=== PATIENT | male | born 1990 | race Caucasian/White ===

== ENCOUNTER 2020-08-15 17:20 | Emergency (ER) | payer OTHER, SELFPAY ==
--- NOTE | ~2020-08-15 | XR_ITS ---
EXAMINATION: XR elbow LT min 3V DATE: 08/15/2020 18:11 INDICATION: Left elbow pain TECHNIQUE: Anteroposterior, two oblique and lateral views of the left elbow were obtained. COMPARISON: None. FINDINGS: Alignment is normal. No fracture or joint effusion. Joint spaces are normal. A posterior so ft tissue laceration is seen near the olecranon. IMPRESSION: 1. Posterior soft tissue laceration without underlying osseous abnormality. Reviewed, dictated and finalized at location A. [employer]
[2020-08-15 17:28] VITALS: BP 151/80; PULSE 70; RESP 18; TEMP 35.8; O2SAT 99
[2020-08-15 19:36] VITALS: BP 128/83; PULSE 63; RESP 18; TEMP 36.3; O2SAT 100
--- NOTE | 2020-08-15 19:48 | ED.GENADULT ---
HPI - General Adult General Chief complaint: Extremity Injury, Upper <Madalyn Villasenor PA-C - Last Filed: 08/15/20 19:58> Stated complaint: ELbow lac at work <GABRIELA Mathias Last Filed: 08/15/20 19:58> Time Seen by Provider: 08/15/20 17:49 <Madalyn Villasenor PA-C - Last Filed: 08/15/20 19:58> Source: patient <GABRIELA Mathias Last Filed: 08/15/20 19:58> Mode of arrival: ambulatory <GABRIELA Mathias Last Filed: 08/15/20 19:58> Limitations: no limitations <GABRIELA Mathias Last Filed: 08/15/20 19:58> History of Present Illness HPI narrative: Patient presents with chief complaint of laceration to the left elbow with a just 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 Patient reports laceration was bleeding so his coworker told him that he needs to go to the ER for stitches. Patient states that he is up-to-date on Tdap. Patient denies head injury or any other areas of discomfort or impact. <GABRIELA Mathias Last Filed: 08/15/20 19:58> Related Data Home medications: Home Medications Medication Instructions Recorded Confirmed No Home Medications 07/18/19 08/15/20 <GABRIELA Mathias Last Filed: 08/15/20 19:58> Allergies/adverse reactions: Allergies Allergy/AdvReac Type Severity Reaction Status Date / Time No Known Allergies Allergy Verified 08/15/20 17:48 <GABRIELA Mathias Last Filed: 08/15/20 19:58> Review of Systems Review of Systems: Narrative: CONSTITUTIONAL: Denies fever, chills, or sweats. EYES: Denies visual changes, redness, or discharge. ENT: Denies rhinorrhea, congestion, sore throat, or otalgia. CARDIOVASCULAR: Denies chest pain, palpitations, or edema. RESPIRATORY: Denies cough or dyspnea. GASTROINTESTINAL: Denies abdominal pain, nausea, vomiting, or diarrhea. GENITOURINARY: Denies dysuria or hematuria. SKIN: Reports laceration denies rash or itching. MUSCULOSKELETAL: Denies back pain, joint pain, or myalgia. NEUROLOGIC: Denies headache, numbness, dizziness, or weakness. PSYCHIATRIC: Denies anxiety or depression. <Madalyn Villasenor PA-C - Last Filed: 08/15/20 19:58> PMFSH Past Medical History Medical History: Medical History (Updated 08/15/20 @ 19:57 by Madalyn Villasenor PA-C) Achilles tendinitis of right lower extremity Acquired heel varus of right foot Retrocalcaneal bursitis <Madalyn Villasenor PA-C - Last Filed: 08/15/20 19:58> Social History Social History: Social History Smoking status: Former smoker Tobacco type: cigarettes Alcohol intake: current Substance use: unknown Additional occupation/education comments: [employer] Gender identity (if verbalized by the patient): Male Spiritual care concerns: No <Madalyn Villasenor PA-C - Last Filed: 08/15/20 19:58> Exam Narrative: Exam Narrative: GENERAL: Well-appearing, well-nourished, and in no acute distress. HEAD: Normocephalic, atraumatic. EYES: PERRLA and EOMI. NECK: Supple. No adenopathy or masses. CHEST: Clear to auscultation. No respiratory distress. No wheezes rales or rhonchi HEART: Regular rate and rhythm. EXTREMITIES: Normal range of motion. No edema. SKIN: 3CM laceration to the left elbow. bleeding mild. Warm, dry, no rash. NEURO: No focal deficits. Alert and oriented x3. PSYCH: Normal mood and affect. <Madalyn Villasenor PA-C - Last Filed: 08/15/20 19:58> Course Vital Signs Vital signs: Vital Signs Temperature 96.4 F L 08/15/20 17:28 Pulse Rate 70 08/15/20 17:28 Respiratory Rate 18 08/15/20 17:28 Blood Pressure 151/80 H 08/15/20 17:28 Pulse Oximetry 99 08/15/20 17:28 Temperature 97.4 F L 08/15/20 19:36 Pulse Rate 63 08/15/20 19:36 Respiratory Rate 18 08/15/20 19:36 Blood Pressure 128/83 08/15/20 19:36 Pulse Oximetry 100 08/15/20 19:36 <Madalyn Villasenor P
== END 2020-08-15 20:32 | disposition home or self-care (01) ==
PROVIDERS: Emergency Provider General Practice
DX: S51.012A Laceration without foreign body of left elbow, initial encounter (principal); W22.8XXA Striking against or struck by other objects, initial encounter
CPT/HCPCS: 12001; 73080; 99283